=== PATIENT | female | born 1985 | race Caucasian/White ===

== ENCOUNTER 2018-09-14 16:09 | Emergency (ER) | payer OTHER, SELFPAY ==
[2018-09-14 16:53] LABS: #Basophils 0.1 thou/uL (0.0-0.2); #Eosinphils 0.3 thou/uL (0.0-0.7); #Monocytes 0.4 thou/uL (0.11-0.59); #Neutrophils 3.7 thou/uL (1.40-6.50); %Basophils 1.1 % (0.0-1.0); %Eosinophils 4.7 % (0.0-10.0); %Lymphocytes 30.4 % (21.0-51.0); %Monocytes 6.5 % (0.0-10.0); %Neutrophils 57.3 % (42.0-75.0); Hemoglobin 12.7 g/dL (12.0-16.0); Mean Corpuscular HGB CONC 34.7 g/dL (32.0-36.0); Mean Corpuscular Hemoglobin 30.3 pg (27.0-31.0); Mean Corpuscular Volume 87.4 fL (78.0-98.0); Mean Platelet Volume 7.1 fL (7.4-10.4); Platelet Count 331 thou/uL (130-400); RBC Distribution Width 11.8 % (11.5-14.5); Red Blood Cell (RBC) Count 4.18 mill/uL (4.20-5.40); White Blood Cell (WBC) Count 6.4 thou/uL (4.8-10.8)
[2018-09-14 17:16] LABS: BHCG - Serum Negative (NEGATIVE); Pregs Control Background? CLEAR/WHITE (CLR/WHITE); Pregs Control Bar Appear? YES (CONTROL BAR)
[2018-09-14 17:59] LABS: Bilirubin Negative (Negative); Blood, Urine Large (Negative); Clarity CLEAR (Clear); Glucose, Urine (Dipstick) Negative (Negative); Leukocyte Negative (Negative); Nitrite Negative (Negative); Protein, Urine (Dipstick) Negative (Neg-Trace); Specific Gravity, Urine 1.005 (1.002-1.036); Urobilinogen 0.2 mg/dL (0.2-1.0)
[2018-09-14 18:01] LABS: Bacteria/HPF None Seen HPF (None Seen); Hyaline Casts/LPF 0-3 HYALINE CAST LPF (0-3 Hyaline); Pathc Cast-AUWi Flag 0.43 (0-2.49); RBC/HPF 0-3 HPF (0-3); Squamous Epithelial 0-3 HPF (0-3); WBC/HPF None Seen HPF (0-3)
--- NOTE | 2018-09-14 19:03 | ULT ---
TRANSVAGINAL PELVIC ULTRASOUND WITH DOPPLER: HISTORY: Pelvic pain. Heavy bleeding. COMPARISON: None. TECHNIQUE: Real-time johnson-scale, color Doppler, and spectral analysis of the pelvis performed with transabdomina l and transvaginal approach. FINDINGS: The endometrium is thickened, measuring 2 cm. There are multiple cysts at the junctional zone. Adeq uate vascular flow to both ovaries. A left ovarian cyst is present, measuring up to 2.5 cm. No significant free fluid in the pelvis. The right ovary measures 4.2 x 2 x 1.8 cm. The left ovary measures 2.8 x 2.5 x 1.7 cm. IMPRESSION: 1. Thickened endometrium with what appeared to be some microcysts at the junctional zone, suggesting adenomyosis. Followup recommended. 2. Cysts of the left ovary, measuring up to 2.8 cm. Recommend correlation with the patient's hCG level. If the hCG level is elevated, a molar would be within the differential, although this is felt less likely. POS: HOME
== END 2018-09-14 19:24 | disposition home or self-care (01) ==
LOC: ERS 16:09
DX: N80.0 Endometriosis of uterus (principal)
CPT/HCPCS: 36415; 76856; 81003; 81015; 84703; 85025; 86850; 86900; 86901

== ENCOUNTER 2020-07-05 13:41 | Outpatient (CLI) | payer OTHER ==
--- NOTE | 2020-07-05 14:51 | MMO ---
Bilateral MAMMO Bilat Screen [facility]. CLINICAL HISTORY: Patient is 35 years old and is seen for screening. The patient has the following family history of breast cancer: maternal grandmother, at age 76. The patient has no personal history of cancer. VIEWS: The views performed were: bilateral craniocaudal with tomosynthesis and bilateral mediolateral oblique with tomosynthesis. This study has been interpreted with the assistance of computer-aided detection. MAMMOGRAM FINDINGS: There are scattered fibroglandular densities. Finding 1: There are calcifications seen in the central region of the right breast. Finding 2: There is a round mass measuring 6 millimeters with circumscribed margins seen in the upper-outer region of the left breast. IMPRESSION: FINDING 1: CALCIFICATIONS IN THE RIGHT BREAST REQUIRE ADDITIONAL EVALUATION. SPOT MAGNIFICATION VIEW(S) ARE RECOMMENDED. FINDING 2: MASS IN THE LEFT BREAST REQUIRES ADDITIONAL EVALUATION. AN ULTRASOUND EXAM IS RECOMMENDED. THE RESULTS OF THIS EXAM WERE SENT TO THE PATIENT. ACR BI-RADS Category 0 - Incomplete: Need additional imaging evaluation. [facility] will notify the patient of the need for additional imaging services. MAMMOGRAPHY NOTE: 1. A negative mammogram report should not delay a biopsy if a dominant of clinically suspicious mass is present. 2. Approximately 10% to 15% of breast cancers are not detected by mammography. 3. Adenosis and dense breasts may obscure an underlying neoplasm. Reported by: HIPOLITO DUDLEY MD Electonically Signed: [id number]
== END 2020-07-05 13:42 | disposition home or self-care (01) ==
LOC: BICMAMMO 13:41
PROVIDERS: ATTEND Family Medicine
DX: Z12.31 Encounter for screening mammogram for malignant neoplasm of breast (principal); N63.21 Unspecified lump in the left breast, upper outer quadrant; R92.1 Mammographic calcification found on diagnostic imaging of breast; Z80.3 Family history of malignant neoplasm of breast
CPT/HCPCS: 77063; 77067

== ENCOUNTER 2020-07-21 14:30 | Outpatient (CLI) | payer OTHER ==
--- NOTE | 2020-07-21 15:10 | MMO ---
Right Breast MAMMO Unilat Diag [facility]. CLINICAL HISTORY: Patient is 35 years old and is seen for diagnostic exam. The patient has the following family history of breast cancer: maternal grandmother, at age 76. The patient has no personal history of cancer. VIEWS: The views performed were: right craniocaudal spot compression magnification; right mediolateral spot compression magnification; and right mediolateral with tomosynthesis. FILMS COMPARED: The present examination has been compared to prior imaging studies performed at [facility] on 07/05/2020 and 07/21/2020. This study has been interpreted with the assistance of computer-aided detection. MAMMOGRAM FINDINGS: There are scattered fibroglandular densities. The right breast calcs are suspicious and should be biopsied. The left outer breast nodule is a lymph node on US. IMPRESSION: FINDING IN THE RIGHT BREAST IS SUSPICIOUS. A STEREOTACTIC BREAST BIOPSY IS RECOMMENDED. THE RESULTS OF THIS EXAM WERE SENT TO THE PATIENT. ACR BI-RADS Category 4 - Suspicious abnormality - biopsy should be considered D/W pt in person @ 3:00 pm MAMMOGRAPHY NOTE: 1. A negative mammogram report should not delay a biopsy if a dominant of clinically suspicious mass is present. 2. Approximately 10% to 15% of breast cancers are not detected by mammography. 3. Adenosis and dense breasts may obscure an underlying neoplasm. Reported by: MANOJ SAMPSON MD Electonically Signed: [id number]
--- NOTE | 2020-07-21 15:32 | ULT ---
LEFT BREAST ULTRASOUND: 07/21/20 HISTORY: Abnormal mammogram. It has been erroneously marked as a right breast order ultrasound is actually a left breast ultrasoun d. HISTORY: Left breast mass on mammogram. CORRELATION: Correlation is made with mammogram of 06/28/20. FINDINGS: Sonographic evaluation of the left outer breast demonstrates a 6 mm well circumscribed oval nonshadow ing hypoechoic nodules with echogenic hilum measuring about 6 mm within the 3 and 4 o'clock position of the left breast, 6 cm from the nipple, corresponding to the mammogram finding. IMPRESSION: Left breast: BIRADS 2: Benign Finding(s) Routine annual screening mammography (for women over age 40). Right breast: BI-RADS 4: Suspicious Abnormality - Biopsy Should Be Considered Usually requires biopsy. Stereotactic biopsy of the right breast calcifications is recommended. Discussed in person with the patient at 3 p.m. POS: OFF
== END 2020-07-21 14:31 | disposition home or self-care (01) ==
LOC: BICMAMMO 14:30
PROVIDERS: ATTEND Family Medicine
DX: N63.23 Unspecified lump in the left breast, lower outer quadrant (principal)
CPT/HCPCS: G0279

== ENCOUNTER → 2020-07-29 | Day surgery (SDC) | payer OTHER ==
--- NOTE | 2020-07-29 11:48 | MMO ---
Right breast biopsy microcalcifications stereotactic guided Surgical specimen mammography Diagnostic mammogram right breast post biopsy HISTORY: After explaining the procedure and answering all questions, the microcalcification cluster w ithin the mid slightly lateral aspect of the right breast was again visualized. Sterile technique, buffered local anesthesia, stereotactic guidance, and a lateral approach were used to carefully advance a 10-gauge vacuum-assisted needle into the microcalcification cluster. Position was confirmed with stereotactic imaging. A total of 12 vacuum-assisted samples were obtained. Mammographic evaluation of the specimen shows microcalcifications within the tissue. Localization clip was placed in the biopsy bed and confirmed with stereotactic imaging. Needle was re moved and hemostasis obtained using direct pressure. Patient tolerated the procedure well and was dismissed in good condition. Postprocedure mammographic images shows localization clip to lie at the far lateral margin of the bio psy bed. A portion of the microcalcifications have been removed. Small pockets of gas are present at the biopsy bed. Heterogeneously dense fibroglandular tissue. IMPRESSION : Technically successful stereotactic guided biopsy right breast microcalcifications. Pathology is pend ing.
== END ==
LOC: MAMMO 07:06
PROVIDERS: ATTEND Family Medicine
PROC: 0H9T3ZX Drainage of Right Breast, Percutaneous Approach, Diagnostic (ICD-10-PCS; principal; 2020-07-29)
DX: N60.21 Fibroadenosis of right breast (principal)
CPT/HCPCS: 19081; 76098; 88305

== ENCOUNTER 2021-02-18 19:34 | Emergency (ER) | payer SELFPAY ==
[2021-02-18 20:02] LABS: #Basophils 0.1 thou/uL (0.0-0.2); #Eosinphils 0.3 thou/uL (0.0-0.7); #Lymphocytes 2.6 thou/uL (1.20-3.40); #Monocytes 0.6 thou/uL (0.11-0.59); #Neutrophils 5.2 thou/uL (1.40-6.50); %Basophils 0.7 % (0.0-1.0); %Eosinophils 3.5 % (0.0-10.0); %Lymphocytes 29.2 % (21.0-51.0); %Monocytes 7.2 % (0.0-10.0); %Neutrophils 59.4 % (42.0-75.0); Mean Corpuscular HGB CONC 35.3 g/dL (32.0-36.0); Mean Corpuscular Hemoglobin 32.6 pg (27.0-31.0); Mean Corpuscular Volume 92.3 fL (78.0-98.0); Platelet Count 270 thou/uL (130-400); RBC Distribution Width 11.1 % (11.5-14.5); Red Blood Cell (RBC) Count 3.99 mill/uL (4.20-5.40); White Blood Cell (WBC) Count 8.7 thou/uL (4.8-10.8)
[2021-02-18 20:23] LABS: ALT (SGPT) 13 U/L (8-55); AST (SGOT) 18 U/L (5-34); Albumin 4.2 g/dL (3.5-5.0); Alkaline Phosphatase 60 U/L (40-110); Anion Gap 16 mmol/L (10-20); BUN (Urea Nitrogen) 10 mg/dL (7.0-18.7); Bilirubin, Total 0.3 mg/dL (0.2-1.2); Calc. Creatinine Clearance 0 mL/min (70-130); Calcium 9.5 mg/dL (7.8-10.44); Carbon Dioxide 21 mmol/L (22-29); Chloride 104 mmol/L (98-107); Globulin 3.2 g/dL (2.4-3.5); Glucose 132 mg/dL (70-105); Potassium 3.7 mmol/L (3.5-5.1); Protein, Total 7.4 g/dL (6.0-8.3); Sodium 137 mmol/L (136-145)
== END 2021-02-18 22:10 | disposition home or self-care (01) ==
LOC: ERS 19:34
DX: R00.2 Palpitations (principal)
CPT/HCPCS: 36415; 71045; 80053; 84443; 84484; 85025; 93005

== ENCOUNTER 2021-02-19 16:01 | Inpatient (IN) | payer SELFPAY ==
[2021-02-19] MEDS ORDERED: Diltiazem 125 MG/25 ML ONE (16:22)
[2021-02-19 18:05] LABS: #Basophils 0.1 thou/uL (0.0-0.2); #Eosinphils 0.3 thou/uL (0.0-0.7); #Monocytes 0.4 thou/uL (0.11-0.59); #Neutrophils 3.7 thou/uL (1.40-6.50); %Basophils 0.9 % (0.0-1.0); %Eosinophils 4.6 % (0.0-10.0); %Lymphocytes 31.3 % (21.0-51.0); %Monocytes 6.1 % (0.0-10.0); %Neutrophils 57.1 % (42.0-75.0); Mean Corpuscular HGB CONC 35.4 g/dL (32.0-36.0); Mean Corpuscular Hemoglobin 32.7 pg (27.0-31.0); Mean Corpuscular Volume 92.4 fL (78.0-98.0); Mean Platelet Volume 7.6 fL (7.4-10.4); Platelet Count 314 thou/uL (130-400); RBC Distribution Width 11.2 % (11.5-14.5); Red Blood Cell (RBC) Count 4.27 mill/uL (4.20-5.40); White Blood Cell (WBC) Count 6.4 thou/uL (4.8-10.8)
[2021-02-19] MEDS ORDERED: Acetaminophen 325 MG TAB PO PRN (18:22)
[2021-02-19] MEDS ORDERED: Senokot S 8.6-50 MG TAB PO PRN (18:22)
[2021-02-19] MEDS ORDERED: Lorazepam 2 MG/ML VIAL SLOW IVP PRN (18:26)
[2021-02-19] MEDS ORDERED: Diltiazem 125 MG in Sodium Chloride 0.9% 100 ML IVPB SCH (18:30)
[2021-02-19 18:55] LABS: Anion Gap 16 mmol/L (10-20); BUN (Urea Nitrogen) 6 mg/dL (7.0-18.7); Calc. Creatinine Clearance 0 mL/min (70-130); Calcium 9.3 mg/dL (7.8-10.44); Carbon Dioxide 23 mmol/L (22-29); Chloride 103 mmol/L (98-107); Glucose 128 mg/dL (70-105); Magnesium 1.6 mg/dL (1.6-2.6); Potassium 3.4 mmol/L (3.5-5.1); Sodium 139 mmol/L (136-145)
[2021-02-19] MEDS ORDERED: Potassium Chloride 20 MEQ TAB PO SCH (19:00)
[2021-02-19] MEDS ORDERED: Ondansetron ODT 4 MG TAB SL PRN (19:30)
[2021-02-19] MEDS ORDERED: Sodium Chloride 0.9% 1,000 ML IV SCH (19:30)
[2021-02-19] MEDS ORDERED: Ondansetron PF 4 MG/2 ML Vial IVP PRN (19:30)
[2021-02-19 19:43] LABS: Troponin I Less than 0.010 ng/mL (< 0.028)
[2021-02-19 19:50] VITALS: BMI 27.2
[2021-02-19] MEDS: Enoxaparin Sodium 60 MG/0.6 ML SYRINGE SC SCH (20:31)
[2021-02-19] MEDS: Sodium Chloride 0.9% 1,000 ML IV SCH (20:31)
[2021-02-19] MEDS: Famotidine 20 MG TAB PO SCH (20:31)
[2021-02-19 22:43] LABS: Troponin I Less than 0.010 ng/mL (< 0.028)
[2021-02-20 05:26] LABS: Anion Gap 12 mmol/L (10-20); BUN (Urea Nitrogen) 8 mg/dL (7.0-18.7); Calc. Creatinine Clearance 124 mL/min (70-130); Calcium 8.8 mg/dL (7.8-10.44); Carbon Dioxide 22 mmol/L (22-29); Chloride 108 mmol/L (98-107); Glucose 86 mg/dL (70-105); Potassium 3.7 mmol/L (3.5-5.1); Sodium 138 mmol/L (136-145)
[2021-02-20] MEDS ORDERED: Multivitamins, Adult 10 ML, Folic Acid 1 MG, Thiamine HCl 100 MG in Dextrose 5 %-0.45 %... IV SCH (07:00)
[2021-02-20] MEDS: Sodium Chloride 0.9% 1,000 ML IV SCH ×2 (08:19→22:01)
[2021-02-20] MEDS: Potassium Chloride 20 MEQ TAB PO SCH (08:20)
[2021-02-20] MEDS: Enoxaparin Sodium 60 MG/0.6 ML SYRINGE SC SCH ×2 (08:20→20:47)
[2021-02-20] MEDS: Famotidine 20 MG TAB PO SCH ×2 (08:21→20:46)
[2021-02-20 13:14] LABS: SARS-CoV-2 PCR by NAA Not Detected (NotDetected)
[2021-02-20] MEDS ORDERED: Aspirin 325 mg Enteric Coated Tablet PO SCH (16:45)
[2021-02-20] MEDS: Flecainide 50 MG TAB PO SCH (20:46)
[2021-02-20 21:18] LABS: Amphetamine Not Detected (NotDetected); Barbiturates Screen Not Detected (NotDetected); Benzodiazepine Screen Not Detected (NotDetected); Cocaine Metabolite Screen Not Detected (NotDetected); Medtox Control Line Valid? VALID (VALID); Medtox Reader # READER 1; Methadone Not Detected (NotDetected); Methamphetamine Not Detected (NotDetected); Opiate Screen Not Detected (NotDetected); Oxycodone Screen Not Detected (NotDetected); Phencyclidine (PCP) Not Detected (NotDetected); THC/Cannabinoid Screen Not Detected (NotDetected); Tricyclic Screen Not Detected (NotDetected)
[2021-02-21] MEDS ORDERED: ALPRAZolam 0.5 MG TAB PO SCH (02:45)
[2021-02-21 05:40] LABS: Free T4 (Free Thyroxine) 1.09 ng/dL (0.70-1.48)
[2021-02-21] MEDS ORDERED: Multivitamins, Adult 10 ML, Folic Acid 1 MG, Thiamine HCl 100 MG in Dextrose 5 %-0.45 %... IV SCH (08:00)
[2021-02-21] MEDS ORDERED: Aspirin 325 mg Enteric Coated Tablet PO SCH (09:00)
[2021-02-21] MEDS: Famotidine 20 MG TAB PO SCH (10:00)
[2021-02-21] MEDS: Flecainide 50 MG TAB PO SCH (10:00)
[2021-02-21] MEDS: Potassium Chloride 20 MEQ TAB PO SCH (10:06)
[2021-02-21 12:32] VITALS: BP 122/60; TEMP 98
== END 2021-02-21 13:48 | disposition home or self-care (01) | DRG 310 ==
LOC: ERS 16:01 → 2NO 17:55
PROVIDERS: ADMIT Internal Medicine; ATTEND Internal Medicine
DX: I48.0 Paroxysmal atrial fibrillation (principal); Z20.822 Contact with and (suspected) exposure to COVID-19; E87.6 Hypokalemia; F10.10 Alcohol abuse, uncomplicated; Z79.899 Other long term (current) drug therapy
CPT/HCPCS: 36415; 80048; 80306; 83735; 84439; 84443; 84481; 84484; 85025; 93005; 93306; 96365; 96376; J1650; J3411; J7042; U0003; U0005

== ENCOUNTER 2021-07-05 09:57 | Outpatient (CLI) | payer OTHER | END 2021-07-05 09:58 | disposition home or self-care (01) | LOC: BICMAMMO 09:57 | PROVIDERS: ATTEND Family Medicine | DX: Z12.31 Encounter for screening mammogram for malignant neoplasm of breast (principal) | CPT/HCPCS: 77063; 77067 ==

== ENCOUNTER 2021-10-18 01:11 | Emergency (ER) | payer SELFPAY | END 2021-10-18 02:17 | disposition left against medical advice (07) | LOC: ERS 01:11 | DX: Z53.21 Procedure and treatment not carried out due to patient leaving prior to being seen by health care provider (principal) | CPT/HCPCS: 93005 ==

== ENCOUNTER 2022-08-28 00:49 | Emergency (ER) | payer BC ==
[2022-08-28 01:44] LABS: #Eosinphils 0.2 thou/uL (0.0-0.7); #Lymphocytes 2.8 thou/uL (1.20-3.40); #Monocytes 0.9 thou/uL (0.11-0.59); #Neutrophils 5.4 thou/uL (1.40-6.50); %Basophils 0.2 % (0.0-1.0); %Eosinophils 1.8 % (0.0-10.0); %Lymphocytes 30.4 % (21.0-51.0); %Monocytes 9.2 % (0.0-10.0); %Neutrophils 58.4 % (42.0-75.0); Hemoglobin 11.5 g/dL (12.0-16.0); Mean Corpuscular HGB CONC 34.7 g/dL (32.0-36.0); Mean Corpuscular Hemoglobin 31.2 pg (27.0-31.0); Platelet Count 242 10x3/uL (130-400); Red Blood Cell (RBC) Count 3.67 mill/uL (4.20-5.40); White Blood Cell (WBC) Count 9.3 10x3/uL (4.8-10.8)
[2022-08-28 02:03] LABS: ALT (SGPT) 7 U/L (8-55); AST (SGOT) 11 U/L (5-34); Albumin 3.6 g/dL (3.5-5.0); Alkaline Phosphatase 38 U/L (40-110); Anion Gap 13 mmol/L (10-20); BUN (Urea Nitrogen) 9 mg/dL (7.0-18.7); Bilirubin, Total 0.2 mg/dL (0.2-1.2); Calc. Creatinine Clearance 0 mL/min (70-130); Carbon Dioxide 19 mmol/L (22-29); Chloride 109 mmol/L (98-107); Estimated GFR 120; Globulin 2.5 g/dL (2.4-3.5); Glucose 100 mg/dL (70-105); Potassium 3.6 mmol/L (3.5-5.1); Protein, Total 6.1 g/dL (6.0-8.3); Sodium 137 mmol/L (136-145)
== END 2022-08-28 02:45 | disposition home or self-care (01) ==
LOC: ERS 00:49
DX: O99.891 Other specified diseases and conditions complicating pregnancy (principal); R00.2 Palpitations; O99.012 Anemia complicating pregnancy, second trimester; D64.9 Anemia, unspecified; I48.91 Unspecified atrial fibrillation; Z3A.20 20 weeks gestation of pregnancy
CPT/HCPCS: 36415; 80053; 85025; 93005

== ENCOUNTER 2025-05-04 19:26 | Emergency (ER) | payer SELFPAY | END 2025-05-04 21:45 | disposition home or self-care (01) | LOC: ERS 19:26 | DX: M79.601 Pain in right arm (principal); I48.91 Unspecified atrial fibrillation | CPT/HCPCS: 99283 ==

== ENCOUNTER 2025-05-06 12:36 | Outpatient (CLI) | payer OTHER | END 2025-05-06 12:37 | disposition home or self-care (01) | LOC: RAD 12:36 | PROVIDERS: ATTEND Family Medicine | DX: M79.601 Pain in right arm (principal) ==

== ENCOUNTER 2025-05-11 10:56 | Outpatient (CLI) | payer OTHER | END 2025-05-11 10:57 | disposition home or self-care (01) | LOC: SCSMRI 10:56 | PROVIDERS: ATTEND Family Medicine | DX: M79.601 Pain in right arm (principal); M19.011 Primary osteoarthritis, right shoulder; T14.8XXA Other injury of unspecified body region, initial encounter ==